=== PATIENT | female | born 1955 | race Caucasian/White ===

== ENCOUNTER 2018-02-16 23:50 | Inpatient (IN) | payer MEDICARE ==
[~2018-02-16] VITALS: Ht 152.4 cm; Wt 61.6 kg
[2018-02-17] VITALS (17 sets, daily range): BP systolic 125–184; BP diastolic 61–81; PULSE 70–100; RESP 10–18; TEMP 98.6–101.5; O2SAT 95–99
[2018-02-17] MEDS ORDERED: AMLO10 PO (00:22)
[2018-02-17] MEDS ORDERED: LANTUS2P SQ (00:22)
[2018-02-17] MEDS ORDERED: CARV6.25 PO (00:22)
[2018-02-17] MEDS ORDERED: AUGM875T3 PO (00:22)
[2018-02-17] MEDS ORDERED: ASPI-516 CHEW (00:22)
[2018-02-17] MEDS ORDERED: FAMO20TA2 PO (00:22)
[2018-02-17] MEDS ORDERED: GABA600T PO (00:22)
[2018-02-17] MEDS ORDERED: CLON0.1T PO (00:22)
--- NOTE | 2018-02-17 00:32 | PD ---
HPI Chief Complaint: Skin Problem Time Seen by Provider: 00:30 Travel History International Travel<30 days: No Contact w/Intl Traveler<30days: No Traveled to known affect area: No History of Present Illness HPI Patient is visiting family here, normally lives in [place]. She came up here to visit family and while she has been here she started to develop left heel pain more than usual. The patient's daughter made an appointment with a sugar plantation manager who apparently clean the callus of the heel of the left foot and place the patient on Augmentin on Saturday. Now the patient was started to develop redness to the heel, fever at home of 101, decreased activity, decreased appetite, No known drug allergy Past medical history significant for AV shunt, hypertension, dialysis, hysterectomy, diabetes, hip replacement, fistula on the right arm [facility] Past Medical History Cardiovascular Problems: Yes Diabetes: Yes Patient Takes Glucophage: No Dialysis: Yes GERD: Yes Hypertension: Yes Tetanus Vaccination: Unknown Influenza Vaccination: No ?: Not Past Surgical History Arteriovenous Shunt: Yes Hysterectomy: Yes Joint Replacement: Yes (hip) Other Surgery: Yes (fistula right arm) Social History Alcohol Use: No Tobacco Use: No Substance Use: No Allergies-Medications (Allergen,Severity, Reaction): Coded Allergies: No Known Allergies (Verified Allergy, Unknown, 02/17/18) Reported Meds & Prescriptions Reported Meds & Active Scripts Active Reported Lantus Inj (Insulin Glargine) 1,000 Unit/10 Ml Vial 50 Units SQ HS Gabapentin 600 Mg Tab 600 Mg PO BID Famotidine 20 Mg Tab 20 Mg PO BID Aspirin 81 Mg Chew 81 Mg CHEW DAILY Clonidine (Clonidine HCl) 0.1 Mg Tab 0.1 Mg PO BID Coreg (Carvedilol) 6.25 Mg Tab 6.25 Mg PO BID Norvasc (Amlodipine Besylate) 10 Mg Tab 10 Mg PO DAILY Augmentin (Amoxicillin-Clavulanate) 875-125 Mg Tab 1 Tab PO BID Review of Systems General / Constitutional: No: Fever Eyes: No: Visual changes HENT: No: Headaches Cardiovascular: No: Chest Pain or Discomfort Respiratory: No: Shortness of Breath Gastrointestinal: No: Abdominal Pain Genitourinary: No: Dysuria Musculoskeletal: Positive: Pain (Foot pain) Skin: No Rash Neurologic: No: Weakness Psychiatric: No: Depression Endocrine: No: Polydipsia Hematologic/Lymphatic: No: Easy Bruising Physical Exam Narrative GENERAL: SKIN: Warm and dry. HEAD: Atraumatic. Normocephalic. EYES: Pupils equal and round. No scleral icterus. No injection or drainage. ENT: No nasal bleeding or discharge. Mucous membranes pink and moist. NECK: Trachea midline. No JVD. CARDIOVASCULAR: Regular rate and rhythm. RESPIRATORY: No accessory muscle use. Clear to auscultation. Breath sounds equal bilaterally. GASTROINTESTINAL: Abdomen soft, non-tender, nondistended. MUSCULOSKELETAL: Extremities without clubbing, cyanosis, or edema. No obvious deformities. Right heel has 2 chronic heel wounds that are not infected and are in various stages of healing. However the left heel has a callus as well as surrounding erythematous changes to the heel. No drainage, a small streak noted along the medial aspect of her heel NEUROLOGICAL: Awake and alert. No obvious cranial nerve deficits. Motor grossly within normal limits. Five out of 5 muscle strength in the arms and legs. Normal speech. PSYCHIATRIC: Appropriate mood and affect; insight and judgment normal. Data Data Last Documented VS Vital Signs Date Time Temp Pulse Resp B/P (MAP) Pulse Ox O2 Delivery O2 Flow Rate FiO2 02/17/18 01:20 90 16 164/75 (104) 95 Nasal Cannula 02/17/18 00:03 101.5 Orders Orders Sepsis Workup Initiated (02/17/18 ) Complete Blood Count With Diff (02/17/18 00:41) Comprehensive Metabolic Panel (02/17/18 00:41) Prothrombin Time / Inr (Pt) (02/17/18 00:41) Act Partial Throm Time (Ptt) (02/17/18 00:41) Lactic Acid Sepsis Protocol (02/17/18 00:41) Lipase (02/17/18 00:41) Troponin I (02/17/18 00:41) Urinalysis - C+S If Indicated (02/17/18 00:41) Blood Culture (02/17/18 00:41) Chest, Single Ap (02/17/18 00:41) Blood Glucose (02/17/18 00:41) Ecg Monitoring (02/17/18 00:41) Iv Access Insert/Monitor (02/17/18 00:41) Oximetry (02/17/18 00:41) Aztreonam Inj (Azactam Inj) (02/17/18 00:41) Vancomycin Inj (Vancomycin Inj) (02/17/18 00:41) Foot, Heel Only ([id number]) (02/17/18 ) Labs Laboratory Tests Test 02/17/18 00:52 White Blood Count 18.8 TH/MM3 Red Blood Count 2.85 MIL/MM3 Hemoglobin 8.8 GM/DL Hematocrit 27.3 % Mean Corpuscular Volume 95.8 FL Mean Corpuscular Hemoglobin 30.9 PG Mean Corpuscular Hemoglobin Concent 32.2 % Red Cell Distribution Width 13.7 % Platelet Count 344 TH/MM3 Mean Platelet Volume 9.1 FL Neutrophils (%) (Auto) 88.3 % Lymphocytes (%) (Auto) 5.4 % Monocytes (%) (Auto) 5.2 % Eosinophils (%) (Auto) 0.9 % Basophils (%) (Auto) 0.2 % Neutrophils # (Auto) 16.6 TH/MM3 Lymphocytes # (Auto) 1.0 TH/MM3 Monocytes # (Auto) 1.0 TH/MM3 Eosinophils # (Auto) 0.2 TH/MM3 Basophils # (Auto) 0.0 TH/MM3 CBC Comment DIFF FINAL Differential Comment Prothrombin Time 10.3 SEC Prothromb Time International Ratio 1.0 RATIO Activated Partial Thromboplast Time 28.7 SEC Blood Urea Nitrogen 57 MG/DL Creatinine 5.00 MG/DL Random Glucose 732 MG/DL Total Protein 7.5 GM/DL Albumin 2.6 GM/DL Calcium Level 8.6 MG/DL Alkaline Phosphatase 107 U/L Aspartate Amino Transf (AST/SGOT) 17 U/L Alanine Aminotransferase (ALT/SGPT) 14 U/L Total Bilirubin 0.3 MG/DL Sodium Level 125 MEQ/L Potassium Level 4.5 MEQ/L Chloride Level 88 MEQ/L Carbon Dioxide Level 25.8 MEQ/L Anion Gap 11 MEQ/L Estimat Glomerular Filtration Rate 9 ML/MIN Lactic Acid Level 1.3 mmol/L Troponin I LESS THAN 0.02 NG/ML Lipase 285 U/L MDM Medical Decision Making Medical Screen Exam Complete: Yes Emergency Medical Condition: Yes Medical Record Reviewed: Yes Differential Diagnosis Cellulitis versus abscess versus osteomyelitis versus lymphangitis Narrative Course CBC shows 19,000 white count, anemia of 8.8/27.3, normal platelet count 344, 000. Left shift of 88% neutrophilia present Coagulation profile is within normal limits Patient has pseudohyponatremia of 125, hyperglycemia of 732, Normal liver and pancreatic enzymes Lactic acid 1.3 and negative First set of cardiac enzymes negative The patient's BUN and creatinine are 57/5 which are consistent with her end- stage renal disease on dialysis, the patient is also anuric and does not produce urine so we were unable to test her urine. Chest x-ray read by the radiologist seems to be read as expiratory view, most likely the cause of it however mild case of pulmonary edema is not excluded. He will x-ray read by the radiologist as extensive gangrenous subcutaneous infection with gas collections and a foreign bodies identified Sepsis Criteria SIRS Criteria (2 or more): Temp > 100.9 or < 96.8, WBC > 16252, < 4000 or > 10 % bands Sepsis Criteria (SIRS+source): Infect source susp/known Criteria Outcome: Meets sepsis criteria Diagnosis Primary Impression: Left heel gangrene Additional Impressions: Rule out osteo-, unknown retained foreign body Hyperglycemia Pseudohyponatremia Admitting Information Admitting Physician Requests: Admit Xu Castro MD February 17, 2018 00:32
[2018-02-17] MEDS ORDERED: AZTREONAM INJ 2,000 MG in SODIUM CHLORIDE 0.9% INJ 100 ML IV STA (00:41)
[2018-02-17] MEDS ORDERED: VANCOMYCIN INJ 1,000 MG in SODIUM CHLOR 0.9% 250 ML INJ 250 ML IV STA (00:41)
[2018-02-17 01:05] LABS: AUTOMATED NEUTROPHIL # 16.6 TH/MM3 (1.8-7.7); BASOPHIL % 0.2 % (0.0-2.0); EOSINOPHIL # 0.2 TH/MM3 (0-0.4); EOSINOPHIL % 0.9 % (0.0-4.0); HEMATOCRIT 27.3 % (35.0-46.0); HEMOGLOBIN 8.8 GM/DL (11.6-15.3); LYMPH % 5.4 % (9.0-44.0); MEAN CELL VOLUME 95.8 FL (80.0-100.0); MEAN CORPUSCULAR HEMOGLOBIN 30.9 PG (27.0-34.0); MEAN CORPUSCULAR HGB CONC 32.2 % (32.0-36.0); MEAN PLATELET VOLUME 9.1 FL (7.0-11.0); MONO % 5.2 % (0.0-8.0); NEUT % 88.3 % (16.0-70.0); PLATELET COUNT 344 TH/MM3 (150-450); RED BLOOD COUNT 2.85 MIL/MM3 (4.00-5.30); RED CELL DISTRIBUTION WIDTH 13.7 % (11.6-17.2); WHITE BLOOD COUNT 18.8 TH/MM3 (4.0-11.0)
[2018-02-17 01:12] LABS: CHLORIDE 88 MEQ/L (98-107); SODIUM (NA) 125 MEQ/L (136-145)
[2018-02-17 01:16] LABS: ALBUMIN 2.6 GM/DL (3.4-5.0); BICARBONATE 25.8 MEQ/L (21.0-32.0); BLOOD UREA NITROGEN 57 MG/DL (7-18); CALCIUM 8.6 MG/DL (8.5-10.1)
[2018-02-17 01:19] LABS: ALT (GPT) 14 U/L (10-53); AST (GOT) 17 U/L (15-37); GLOMERULAR FILTRATION RATE 9 ML/MIN (>89)
--- NOTE | 2018-02-17 01:19 | RADRPT ---
EXAM DATE: 02/17/2018 1:08 AM EDT AGE/SEX: 62 years / Female INDICATIONS: Fever, short of breath, evaluate for pneumonia CLINICAL DATA: This is the patient's initial encounter. Patient reports that signs and symptoms have been present for 1 day and indicates a pain score of Nonresponsive. MEDICAL/SURGICAL HISTORY: None. None. COMPARISON: No prior exams available for comparison. FINDINGS: There is crowding of the bronchovascular markings due to the partially expiratory nature of the radio graphs creating prominence of the perivascular interstitial markings, however mild case of pulmonary edema is not excluded. Focal consolidation is not seen. Chronic vascular atherosclerotic calcificatio ns are seen involving the aorta. Heart and mediastinum are unremarkable for technique. CONCLUSION: There is crowding of the bronchovascular markings due to the partially expiratory nature of the radio graphs creating prominence of the perivascular interstitial markings, however mild case of pulmonary edema is not excluded. Electronically signed by: Angela Hunt MD 02/17/2018 1:18 AM EDT
[2018-02-17 01:21] LABS: TOTAL BILIRUBIN ADULT 0.3 MG/DL (0.2-1.0); TOTAL PROTEIN 7.5 GM/DL (6.4-8.2)
--- NOTE | 2018-02-17 01:22 | RADRPT ---
EXAM DATE: 02/17/2018 1:15 AM EDT AGE/SEX: 62 years / Female INDICATIONS: Painful infection of the heel on left foot, possible foreign body, evaluate for osteom yelitis CLINICAL DATA: This is the patient's initial encounter. Patient reports that signs and symptoms have been present for 3 days and indicates a pain score of Nonresponsive. MEDICAL/SURGICAL HISTORY: None. None. COMPARISON: No prior exams available for comparison. FINDINGS: Extensive subcutaneous gas is present underneath the patient's heel with an approximate 4 mm radiopaq ue foreign body in the subcutaneous tissues. No definite destructive lesion of the calcaneus is ident ified, however there is minimal lucency of the calcaneus questionable for early osteomyelitis. CONCLUSION: 1. Extensive gangrenous subcutaneous infection with gas collections and a foreign body is identified . 2. No definite signs of osteomyelitis, however early osteomyelitis should be entertained and there i s minimal lucency of the calcaneus dorsally. Electronically signed by: Angela Hunt MD 02/17/2018 1:20 AM EDT
[2018-02-17 01:24] LABS: PROTHROMBIN TIME - PATIENT 10.3 SEC (9.8-11.6)
[2018-02-17 01:27] LABS: TROPONIN I LESS THAN 0.02 NG/ML (0.02-0.05)
[2018-02-17 01:29] LABS: GLUCOSE,RANDOM 732 MG/DL (74-106)
[2018-02-17 01:32] LABS: ALKALINE PHOSPHATASE 107 U/L (45-117)
[2018-02-17] MEDS ORDERED: SODIUM CHLOR 0.9% 1000 ML INJ 1,000 ML IV SCH (02:17)
[2018-02-17] MEDS ORDERED: ACETAMINOPHEN/HYDROcodone 325 MG/5 MG TAB PO PRN (02:30)
[2018-02-17] MEDS ORDERED: MAGNESIUM HYDROXIDE SUSP 30 ML CUP PO PRN (02:30)
[2018-02-17] MEDS ORDERED: INSULIN DETEMIR 100 UNITS/ML VIAL SQ ONE (02:30)
[2018-02-17] MEDS ORDERED: BISACODYL 10 MG SUPP RECTAL PRN (02:30)
[2018-02-17] MEDS ORDERED: ACETAMINOPHEN 325 MG TAB PO PRN ×2 (02:30→08:00)
[2018-02-17] MEDS ORDERED: Vancomycin Consult Pharmacy 1 EA OTHER SCH ×2 (02:30→11:30)
[2018-02-17] MEDS ORDERED: INSULIN HUMAN REGULAR 1,000 UNITS/10 ML VIAL IV PUSH ONE (02:30)
[2018-02-17] MEDS ORDERED: SODIUM CHLORIDE 0.9% FLUSH 10 ML FLUSH IV FLUSH PRN ×2 (02:30→08:00)
[2018-02-17] MEDS ORDERED: LACTULOSE SYRUP 20 GM/30 ML CUP PO PRN (02:30)
[2018-02-17] MEDS ORDERED: GLUCAGON 1 MG/ML VIAL OTHER PRN (02:30)
[2018-02-17] MEDS ORDERED: SENNOSIDES 8.6 MG TAB PO PRN (02:30)
[2018-02-17] MEDS ORDERED: MORPHINE SULFATE 4 MG/ML INJ IV PUSH PRN (02:30)
[2018-02-17] MEDS ORDERED: DEXTROSE 50% IN WATER 50 ML VIAL(D50) IV PUSH PRN (02:30)
[2018-02-17] MEDS ORDERED: SODIUM CHLOR 0.9% 1000 ML INJ 1,000 ML IV PRN (07:58)
[2018-02-17] MEDS ORDERED: SODIUM CHLOR 0.9% 1000 ML INJ 1,000 ML OTHER PRN ×2 (07:58)
[2018-02-17] MEDS ORDERED: MANNITOL 12.5 GM/50 ML VIAL IV PRN (08:00)
[2018-02-17] MEDS ORDERED: INSULIN ASPART SUPPLEMENTAL SCALE SQ SCH ×2 (08:00→12:00)
[2018-02-17] MEDS ORDERED: ALBUMIN 25% INJ 100 ML IV PRN (08:00)
[2018-02-17] MEDS ORDERED: EPOETIN ALFA 10,000 UNITS/ML VIAL IV PUSH PRN (08:00)
[2018-02-17] MEDS ORDERED: HEPARIN SODIUM - IV 10,000 UNITS/10 ML VIAL IV FLUSH PRN (08:00)
[2018-02-17] MEDS ORDERED: diphenhydrAMINE HCL 25 MG CAP PO PRN (08:00)
[2018-02-17] MEDS ORDERED: NITROGLYCERIN 0.4 MG SL 25 TABS/BTL SL PRN (08:00)
[2018-02-17] MEDS ORDERED: cloNIDine HCL 0.1 MG TAB PO PRN (08:00)
[2018-02-17] MEDS ORDERED: ONDANSETRON HCL 4 MG/2 ML VIAL IV PUSH PRN (08:00)
[2018-02-17] MEDS ORDERED: GELATIN 12 MM/7 MM FOAM TOP PRN (08:00)
[2018-02-17 08:54] LABS: CALCIUM 8.2 MG/DL (8.5-10.1)
[2018-02-17 08:55] LABS: BICARBONATE 25.5 MEQ/L (21.0-32.0)
[2018-02-17 08:58] LABS: CREATININE 5.3 MG/DL (0.50-1.00)
[2018-02-17] MEDS ORDERED: CARVEDILOL 6.25 MG TAB PO SCH (09:00)
[2018-02-17] MEDS ORDERED: cloNIDine HCL 0.1 MG TAB PO SCH (09:00)
[2018-02-17] MEDS ORDERED: SODIUM CHLORIDE 0.9% FLUSH 10 ML FLUSH IV FLUSH SCH (09:00)
[2018-02-17] MEDS ORDERED: HEPARIN SODIUM - SQ 10,000 UNITS/ML VIAL SQ SCH (09:00)
[2018-02-17] MEDS ORDERED: DOCUSATE SODIUM 50 MG/SENNA 8.6 MG TAB PO SCH (09:00)
--- NOTE | 2018-02-17 10:53 | HHI.HP ---
HPI Service [facility] Primary Care Physician No Primary Care Physician Admission Diagnosis LEFT HEEL GANGRENE, MOD/SEVERE HYPERGLYCEMIA W/O DKA, HEEL FB Diagnoses: (1) Sepsis Diagnosis: Principal (2) Diabetic infection of left foot Diagnosis: Principal (3) Diabetes type 1, uncontrolled Chief Complaint: Left foot pain Travel History International Travel<30 Days: No Contact w/Intl Traveler <30 Da: No Traveled to Known Affected Are: No Sepsis Criteria SIRS Criteria (2 or more): Temp > 100.9 or < 96.8, WBC > 55333, < 4000 or > 10 % bands Sepsis Criteria (SIRS+source): Infect source susp/known History of Present Illness Written by Ji Phipps, acting as scribe for Dr. Berrios on 02/17/18 at 10: 52. 62-year-old [place] female rather unfortunate conditions of moving here from [place] with known history of diabetes, diabetic foot care. Patient is just visiting family here from [place] and she started developing worsening left foot pain so they came to the emergency department for evaluation. Patient does have a long-standing history of diabetic foot problems. She recently did get evaluated in the emergency department and by podiatry down in [place] on Saturday in which she was given Augmentin 875 mg twice daily. Patient had been taking medications as directed but she started developing worsening pain and symptoms so she came to the emergency department here. Patient had x-ray done which does show extensive gangrenous subcutaneous infection with gas collections and a foreign body with possible early osteomyelitis. Because of that reason is recommended by ER physician that the patient be admitted for further evaluation and management. Patient did have further testing done which did show indications of sepsis with fever, leukocytosis, source of infection. Lactic acid level was normal. Unfortunately patient is a uncontrolled diabetic due to insurance reasons they do not have money for test strips in order to monitor her glucose. Patient did present with 732 blood glucose. However patient was not in any signs of ketoacidosis. Patient is also complicated with end-stage renal disease on dialysis, she does have fistula in the right arm. Patient does undergo dialysis. Upon speaking to patient and family, they are very anxious to get the patient back to a hospital where they live in order to manage her condition at this time. Review of Systems Musculoskeletal: COMPLAINS OF: Joint pain Except as stated in HPI: all other systems reviewed are Neg Past Family Social History Past Medical History Diabetes Hypertension End-stage renal disease on dialysis Gastroesophageal reflux Past Surgical History Dialysis catheter in the right arm Hip replacement Hysterectomy Reported Medications Reported Meds & Active Scripts Active Reported Lantus Inj (Insulin Glargine) 1,000 Unit/10 Ml Vial 50 Units SQ HS Gabapentin 600 Mg Tab 600 Mg PO BID Famotidine 20 Mg Tab 20 Mg PO BID Aspirin 81 Mg Chew 81 Mg CHEW DAILY Clonidine (Clonidine HCl) 0.1 Mg Tab 0.1 Mg PO BID Coreg (Carvedilol) 6.25 Mg Tab 6.25 Mg PO BID Norvasc (Amlodipine Besylate) 10 Mg Tab 10 Mg PO DAILY Augmentin (Amoxicillin-Clavulanate) 875-125 Mg Tab 1 Tab PO BID Allergies: Coded Allergies: No Known Allergies (Verified Allergy, Unknown, 02/17/18) Family History Family history reviewed and significant for heart disease Social History Patient denies any tobacco, alcohol or illicit drug Physical Exam Vital Signs Vital Signs Date Time Temp Pulse Resp B/P (MAP) Pulse Ox O2 Delivery O2 Flow Rate FiO2 02/17/18 10:01 78 12 152/70 (97) 99 02/17/18 10:00 83 02/17/18 09:01 82 14 171/74 (106) 98 02/17/18 08:40 82 13 156/71 (99) 97 02/17/18 08:07 96 Nasal Cannula 2.00 02/17/18 07:45 99.6 149/66 (93) 02/17/18 07:35 02/17/18 07:04 98.6 81 18 155/72 (99) 96 Nasal Cannula 2.00 02/17/18 05:09 79 16 143/63 (89) 97 Nasal Cannula 2.00 02/17/18 02:57 99.7 87 16 160/68 (98) 96 Nasal Cannula 2.00 02/17/18 01:20 90 16 164/75 (104) 95 Nasal Cannula 02/17/18 01:18 90 16 164/75 (104) 96 Nasal Cannula 02/17/18 00:59 Room Air 02/17/18 00:03 101.5 100 18 184/81 (115 95 Physical Exam GENERAL: Well-developed, well-nourished, in no acute distress. alert and orientated HEENT: Head is normocephalic without any lesions or masses noted. Facial features are symmetric. Eyes: Pupils equal round reactive to light. Extraocular muscles are intact. Conjunctivae were clear. Oropharyngeal: Pharynx without any erythema edema. Tongue is midline without deviation. Buccal mucosa is moist without any masses or lesions NECK: Supple without any masses. Trachea midline no deviation. No JVD, no bruits are appreciated CARDIAC: Regular rhythm, regular rate. S1/S2 are heard. No murmurs gallops or rubs. LUNGS: Clear to auscultation bilaterally. No wheeze, rhonchi or rales. No use of accessory muscles on inspiration or expiration. ABDOMEN: Soft, nontender. Nondistended. Bowel sounds heard in all 4 quadrants. No organomegaly or masses. Negative rebound, negative guarding EXTREMITIES: No edema, pulses are equal bilaterally. No cyanosis or clubbing NEUROLOGY: Mood and affect appear appropriate. Cranial nerves II through XII grossly intact. Muscle strength 5/5 in upper and lower extremities bilaterally. Deep tendon reflexes are 2+ in upper and lower extremities bilaterally. LEFT LOWER EXTREMITY: Patient does have significant erythema noted over the left heel with obvious skin discoloration with black discoloration under an incision, patient often has pale color skin noted around a previous incision karyna. There is a line marked around the erythema without any significant improvement. Laboratory Laboratory Tests Test 02/17/18 00:52 02/17/18 08:17 White Blood Count 18.8 Red Blood Count 2.85 Hemoglobin 8.8 Hematocrit 27.3 Mean Corpuscular Volume 95.8 Mean Corpuscular Hemoglobin 30.9 Mean Corpuscular Hemoglobin Concent 32.2 Red Cell Distribution Width 13.7 Platelet Count 344 Mean Platelet Volume 9.1 Neutrophils (%) (Auto) 88.3 Lymphocytes (%) (Auto) 5.4 Monocytes (%) (Auto) 5.2 Eosinophils (%) (Auto) 0.9 Basophils (%) (Auto) 0.2 Neutrophils # (Auto) 16.6 Lymphocytes # (Auto) 1.0 Monocytes # (Auto) 1.0 Eosinophils # (Auto) 0.2 Basophils # (Auto) 0.0 CBC Comment DIFF FINAL Differential Comment Prothrombin Time 10.3 Prothromb Time International Ratio 1.0 Activated Partial Thromboplast Time 28.7 Blood Urea Nitrogen 57 63 Creatinine 5.00 5.30 Random Glucose 732 532 Total Protein 7.5 Albumin 2.6 Calcium Level 8.6 8.2 Alkaline Phosphatase 107 Aspartate Amino Transf (AST/SGOT) 17 Alanine Aminotransferase (ALT/SGPT) 14 Total Bilirubin 0.3 Sodium Level 125 129 Potassium Level 4.5 4.4 Chloride Level 88 92 Carbon Dioxide Level 25.8 25.5 Anion Gap 11 12 Estimat Glomerular Filtration Rate 9 8 Lactic Acid Level 1.3 Troponin I LESS THAN 0.02 Lipase 285 Date/Time Source Procedure Growth Status 02/17/18 00:55 Blood Peripheral Aerobic Blood Culture Pending Received 02/17/18 00:55 Blood Peripheral Anaerobic Blood Culture Pending Received Result Diagram: 02/17/18 0052 02/17/18 0817 Imaging Last Impressions Chest X-Ray 02/17/18 0041 Signed Impressions: CONCLUSION: There is crowding of the bronchovascular markings due to the partially expirato ry nature of the radiographs creating prominence of the perivascular interstiti al markings, however mild case of pulmonary edema is not excluded. Foot X-Ray 02/17/18 0000 Signed Impressions: CONCLUSION: 1. Extensive gangrenous subcutaneous infection with gas collections and a fore ign body is identified. 2. No definite signs of osteomyelitis, however early osteomyelitis should be e ntertained and there is minimal lucency of the calcaneus dorsally. Septic Shock Reassessment Septic shock perfusion: reassessment completed Caprini VTE Risk Assessment Caprini VTE Risk Assessment: Mod/High Risk (score >= 2) Caprini Risk Assessment Model Point Value = 1 Point Value = 2 Point Value = 3 Point Value = 5 Age 41-60 Minor surgery BMI > 25 kg/m2 Swollen legs Varicose veins or History of unexplained or recurrent spontaneous Oral contraceptives or hormone replacement Sepsis (< 1 month) Serious lung disease, including pneumonia (< 1 month) Abnormal pulmonary function Acute myocardial infarction Congestive heart failure (< 1 month) History of inflammatory bowel disease Medical patient at bed rest Age 61-74 Arthroscopic surgery Major open surgery (> 45 min) Laparoscopic surgery (> 45 min) Malignancy Confined to bed (> 72 hours) Immobilizing plaster cast Central venous access Age >= 75 History of VTE Family history of VTE Factor V Leiden Prothrombin [id number] Lupus anticoagulant Anticardiolipin antibodies Elevated serum homocysteine Heparin-induced thrombocytopenia Other congenital or acquired thrombophilia Stroke (< 1 month) Elective arthroplasty Hip, pelvis, or leg fracture Acute spinal cord injury (< 1 month) Prophylaxis Regimen Total Risk Factor Score Risk Level Prophylaxis Regimen 0-1 Low Early ambulation 2 Moderate Order ONE of the following: *Sequential Compression Device (SCD) *Heparin 5000 units SQ BID 3-4 Higher Order ONE of the following medications: *Heparin 5000 units SQ TID *Enoxaparin/Lovenox 40 mg SQ daily (WT < 150 kg, CrCl > 30 mL/min) *Enoxaparin/Lovenox 30 mg SQ daily (WT < 150 kg, CrCl > 10-29 mL/min) *Enoxaparin/Lovenox 30 mg SQ BID (WT < 150 kg, CrCl > 30 mL/min) AND/OR *Sequential Compression Device (SCD) 5 or more Highest Order ONE of the following medications: *Heparin 5000 units SQ TID (Preferred with Epidurals) *Enoxaparin/Lovenox 40 mg SQ daily (WT < 150 kg, CrCl > 30 mL/min) *Enoxaparin/Lovenox 30 mg SQ daily (WT < 150 kg, CrCl > 10-29 mL/min) *Enoxaparin/Lovenox 30 mg SQ BID (WT < 150 kg, CrCl > 30 mL/min) AND *Sequential Compression Device (SCD) Assessment and Plan Problem List: (1) Sepsis ICD Code: A41.9 - Sepsis, unspecified organism (2) Diabetic infection of left foot ICD Code: E11.628 - Type 2 diabetes mellitus with other skin complications; L08.9 - Local infection of the skin and subcutaneous tissue, unspecified (3) ESRD on hemodialysis ICD Code: N18.6 - End stage renal disease; Z99.2 - Dependence on renal dialysis Assessment and Plan 62-year-old female with Sepsis -Patient met criteria on admission with febrile illness, leukocytosis, diabetic foot infection with extensive gangrene -Patient initially started on vancomycin, Azactam, cefepime for antibiotics -Blood cultures are pending -Obtain wound culture Diabetic foot infection with gas gangrene and possible osteomyelitis -Patient has had evaluation done by abstract manager in [place] where they live. However she regressed got worse she came the hospital for evaluation -X-ray does indicate extensive gangrenous subcutaneous infection with gas collections and a foreign body with possible early osteomyelitis signs -We will need to obtain MRI for further evaluation for osteomyelitis -Continue vancomycin, discontinue cefepime and start Zosyn 4.5 g every 6 hours -Podiatry consulted for further recommendations Diabetes, uncontrolled -Continue Levemir -Increase to high-dose sliding scale insulin End-stage renal disease on dialysis -Nephrology consulted for dialysis DVT prevention -Subcutaneous heparin Discharge disposition Patient presented with sepsis criteria, significant diabetic foot infection, uncontrolled diabetes. Patient and family would like to be discharged in order to drive back home and go to the hospital where they live and follow-up with the abstract manager that they have already seen. Patient was counseled extensively on her clinical condition at this time and without proper treatment the infection could spread systemically and possible cause worsening condition, multiorgan failure, and even . This note was transcribed by alan Phipps. I, Dr. Ayden Berrios personally performed the history, physical exam, and medical decision making; and confirmed the accuracy of the information in the transcribed note. Authenticated by Dr. Ayden Berrios on 02/17/18 at 10:52. Code Status Full code Discussed Condition With Patient, daughter Physician Certification 2 Midnight Certification Type: Admission for Inpatient Services Order for Inpatient Services The services are ordered in accordance with Medicare regulations or non- Medicare payer requirements, as applicable. In the case of services not specified as inpatient-only, they are appropriately provided as inpatient services in accordance with the 2-midnight benchmark. Estimated LOS (days): 3 days is the estimated time the patient will need to remain in the hospital, assuming treatment plan goals are met and no additional complications. Post-Hospital Plan: Not yet determined Ji Phipps February 17, 2018 10:53 Ayden Berrios MD February 17, 2018 10:53
[2018-02-17 12:40] LABS: AUTOMATED NEUTROPHIL # 12.8 TH/MM3 (1.8-7.7); BASOPHIL % 0.2 % (0.0-2.0); EOSINOPHIL # 0.3 TH/MM3 (0-0.4); HEMATOCRIT 26.7 % (35.0-46.0); HEMOGLOBIN 8.6 GM/DL (11.6-15.3); LYMPH % 9.2 % (9.0-44.0); LYMPHOCYTE # 1.4 TH/MM3 (1.0-4.8); MEAN CELL VOLUME 93.3 FL (80.0-100.0); MEAN CORPUSCULAR HEMOGLOBIN 30.1 PG (27.0-34.0); MEAN CORPUSCULAR HGB CONC 32.3 % (32.0-36.0); MEAN PLATELET VOLUME 9.3 FL (7.0-11.0); MONO % 6.7 % (0.0-8.0); NEUT % 81.9 % (16.0-70.0); PLATELET COUNT 321 TH/MM3 (150-450); RED BLOOD COUNT 2.86 MIL/MM3 (4.00-5.30); RED CELL DISTRIBUTION WIDTH 13.1 % (11.6-17.2); WHITE BLOOD COUNT 15.5 TH/MM3 (4.0-11.0)
[2018-02-17] MEDS ORDERED: PIPERACIL-TAZO 4.5 GM PREMIX 100 ML IV SCH (13:00)
--- NOTE | 2018-02-17 14:21 | PD.CONS ---
History of Present Illness Service Podiatry Consult Requested By Reason for Consult Left foot infection/foreign body Primary Care Physician No Primary Care Physician Diagnoses: History of Present Illness Patient here visiting with unknown length of time of issue to left heel. Worsening signs of infection noted and patient admitted. Noted to have possible foreign body with gas on Xray to left heel. Routine consultation placed to podiatry. Past Family Social History Allergies: Coded Allergies: No Known Allergies (Verified Allergy, Unknown, 02/17/18) Past Medical History Diabetes Hypertension End-stage renal disease on dialysis Gastroesophageal reflux Past Surgical History Dialysis catheter in the right arm Hip replacement Hysterectomy Active Ordered Medications Current Medications Medications (Trade) Dose Ordered Sig/Srinivas Route Start Time Stop Time Status Last Admin (D50w (Vial) Inj) 50 ml UNSCH PRN IV PUSH 02/17/18 02:30 (Glucagon Inj) 1 mg UNSCH PRN OTHER 02/17/18 02:30 Sodium Chloride 1,000 ml @ 100 mls/hr Q10H IV 02/17/18 02:17 (NS Flush) 2 ml UNSCH PRN IV FLUSH 02/17/18 02:30 (NS Flush) 2 ml BID IV FLUSH 02/17/18 09:00 02/17/18 09:00 (Heparin Inj) 5,000 units Q12H SQ 02/17/18 09:00 02/17/18 08:29 (Tylenol) 650 mg Q6H PRN PO 02/17/18 02:30 ([place] 5-325 Mg) 1 tab Q4H PRN PO 02/17/18 02:30 (Morphine Inj) 2 mg Q3H PRN IV PUSH 02/17/18 02:30 (Kanchan-Colace) 1 tab BID PO 02/17/18 09:00 02/17/18 08:31 (Milk Of Magnesia Liq) 30 ml Q12H PRN PO 02/17/18 02:30 (Senokot) 17.2 mg Q12H PRN PO 02/17/18 02:30 (Dulcolax Supp) 10 mg DAILY PRN RECTAL 02/17/18 02:30 (Lactulose Liq) 30 ml DAILY PRN PO 02/17/18 02:30 (Norvasc) 10 mg DAILY PO 02/17/18 09:00 02/17/18 08:31 (Coreg) 6.25 mg BID PO 02/17/18 09:00 02/17/18 08:31 (Catapres) 0.1 mg BID PO 02/17/18 09:00 02/17/18 08:33 (Levemir Inj) 50 units HS SQ 02/17/18 21:00 Sodium Chloride 1,000 ml @ 0 mls/hr Q0M PRN OTHER 02/17/18 07:58 (Heparin Inj) 8,000 units UNSCH PRN IV FLUSH 02/17/18 08:00 Sodium Chloride 1,000 ml @ 200 mls/hr Q5H PRN IV 02/17/18 07:58 Sodium Chloride 1,000 ml @ 0 mls/hr Q0M PRN OTHER 02/17/18 07:58 (Mannitol Inj) 12.5 gm UNSCH PRN IV 02/17/18 08:00 Albumin Human 100 ml @ 60 mls/hr UNSCH PRN IV 02/17/18 08:00 (NS Flush) 5 ml UNSCH PRN IV FLUSH 02/17/18 08:00 (Zofran Inj) 4 mg UNSCH PRN IV PUSH 02/17/18 08:00 (Tylenol) 650 mg UNSCH PRN PO 02/17/18 08:00 (Benadryl) 25 mg UNSCH PRN PO 02/17/18 08:00 (Nitrostat Sl) 0.4 mg UNSCH PRN SL 02/17/18 08:00 (Catapres) 0.1 mg UNSCH PRN PO 02/17/18 08:00 (Epogen Inj) 10,000 units UNSCH PRN IV PUSH 02/17/18 08:00 (Gelfoam 12 Mm/7 Mm Top) 1 foam UNSCH PRN TOP 02/17/18 08:00 (NovoLOG SUPPLEMENTAL SCALE) 1 ACHS SLIDING SCALE SQ 02/17/18 12:00 02/17/18 12:04 Pharmacy Profile Note 0 ml @ 0 mls/hr UNSCH OTHER 02/17/18 11:30 Piperacillin Sod/ Tazobactam Sod 100 ml @ 200 mls/hr Q6H IV 02/17/18 13:00 02/17/18 16:00 02/17/18 12:48 Piperacillin Sod/ Tazobactam Sod 50 ml @ 100 mls/hr Q6H IV 02/17/18 20:00 Family History Family history reviewed and significant for heart disease Social History Patient denies any tobacco, alcohol or illicit drug Physical Exam Vital Signs Vital Signs Date Time Temp Pulse Resp B/P (MAP) Pulse Ox O2 Delivery O2 Flow Rate FiO2 02/17/18 12:00 70 02/17/18 10:01 78 12 152/70 (97) 99 02/17/18 10:00 83 02/17/18 09:01 82 14 171/74 (106) 98 02/17/18 08:40 82 13 156/71 (99) 97 02/17/18 08:07 96 Nasal Cannula 2.00 02/17/18 08:00 Nasal Cannula 3.00 02/17/18 07:45 99.6 149/66 (93) 02/17/18 07:35 02/17/18 07:04 98.6 81 18 155/72 (99) 96 Nasal Cannula 2.00 02/17/18 05:09 79 16 143/63 (89) 97 Nasal Cannula 2.00 02/17/18 02:57 99.7 87 16 160/68 (98) 96 Nasal Cannula 2.00 02/17/18 01:20 90 16 164/75 (104) 95 Nasal Cannula 02/17/18 01:18 90 16 164/75 (104) 96 Nasal Cannula 02/17/18 00:59 Room Air 02/17/18 00:03 101.5 100 18 184/81 (115) 95 Laboratory Laboratory Tests Test 02/17/18 00:52 02/17/18 08:17 02/17/18 11:56 White Blood Count 18.8 15.5 Red Blood Count 2.85 2.86 Hemoglobin 8.8 8.6 Hematocrit 27.3 26.7 Mean Corpuscular Volume 95.8 93.3 Mean Corpuscular Hemoglobin 30.9 30.1 Mean Corpuscular Hemoglobin Concent 32.2 32.3 Red Cell Distribution Width 13.7 13.1 Platelet Count 344 321 Mean Platelet Volume 9.1 9.3 Neutrophils (%) (Auto) 88.3 81.9 Lymphocytes (%) (Auto) 5.4 9.2 Monocytes (%) (Auto) 5.2 6.7 Eosinophils (%) (Auto) 0.9 2.0 Basophils (%) (Auto) 0.2 0.2 Neutrophils # (Auto) 16.6 12.8 Lymphocytes # (Auto) 1.0 1.4 Monocytes # (Auto) 1.0 1.0 Eosinophils # (Auto) 0.2 0.3 Basophils # (Auto) 0.0 0.0 CBC Comment DIFF FINAL AUTO DIFF Differential Comment AUTO DIFF CONFIRMED Prothrombin Time 10.3 Prothromb Time International Ratio 1.0 Activated Partial Thromboplast Time 28.7 Blood Urea Nitrogen 57 63 Creatinine 5.00 5.30 Random Glucose 732 532 Total Protein 7.5 Albumin 2.6 Calcium Level 8.6 8.2 Alkaline Phosphatase 107 Aspartate Amino Transf (AST/SGOT) 17 Alanine Aminotransferase (ALT/SGPT) 14 Total Bilirubin 0.3 Sodium Level 125 129 Potassium Level 4.5 4.4 Chloride Level 88 92 Carbon Dioxide Level 25.8 25.5 Anion Gap 11 12 Estimat Glomerular Filtration Rate 9 8 Lactic Acid Level 1.3 Troponin I LESS THAN 0.02 Lipase 285 C-Reactive Protein 17.40 Platelet Estimate NORMAL Platelet Morphology Comment NORMAL Date/Time Source Procedure Growth Status 02/17/18 00:55 Blood Peripheral Aerobic Blood Culture Pending Received 02/17/18 00:55 Blood Peripheral Anaerobic Blood Culture Pending Received Result Diagram: 02/17/18 1156 02/17/18 0817 Imaging Last 72 hours Impressions Chest X-Ray 02/17/18 0041 Signed Impressions: CONCLUSION: There is crowding of the bronchovascular markings due to the partially expirato ry nature of the radiographs creating prominence of the perivascular interstiti al markings, however mild case of pulmonary edema is not excluded. Foot X-Ray 02/17/18 0000 Signed Impressions: CONCLUSION: 1. Extensive gangrenous subcutaneous infection with gas collections and a fore ign body is identified. 2. No definite signs of osteomyelitis, however early osteomyelitis should be e ntertained and there is minimal lucency of the calcaneus dorsally. Assessment and Plan Assessment and Plan Infection left foot, foreign body left heel Patient left AMA before procedure/consultation could take place Obed Yoo DPM February 17, 2018 14:20
--- NOTE | 2018-02-17 17:54 | PD.AMA ---
Against Medical Advice Note Discharge Disposition: Against Medical Advice AMA Statement Patient Alejandra Rondon has decided to leave the hospital against medical advice. This patient has the capacity to refuse care and understands the risks of leaving, including permanent disability and/or , and has had an opportunity to ask questions about her condition. The patient has been informed that she may return for care at any time, and follow up has been arranged/ advised. Ayden Berrios MD February 17, 2018 17:54
[2018-02-17] MEDS ORDERED: PIPERACIL-TAZO 2.25 GM PREMIX 50 ML IV SCH (20:00)
[2018-02-17] MEDS ORDERED: INSULIN DETEMIR 100 UNITS/ML VIAL SQ SCH (21:00)
[2018-02-17] MEDS ORDERED: CEFEPIME INJ 1,000 MG in SODIUM CHLORIDE 0.9% INJ 100 ML IV SCH (23:00)
== END 2018-02-17 14:30 | disposition left against medical advice (07) | DRG 871 ==
LOC: PHED 23:50 → PHEDA 02-17 02:23 → PHICU 02-17 07:29
PROVIDERS: ADMIT Hospitalist; ATTEND Hospitalist
DX: A41.9 Sepsis, unspecified organism (principal); N18.6 End stage renal disease; E10.52 Type 1 diabetes mellitus with diabetic peripheral angiopathy with gangrene; I12.0 Hypertensive chronic kidney disease with stage 5 chronic kidney disease or end stage renal disease; E10.22 Type 1 diabetes mellitus with diabetic chronic kidney disease; K21.9 Gastro-esophageal reflux disease without esophagitis; Z96.649 Presence of unspecified artificial hip joint; Z90.710 Acquired absence of both cervix and uterus; D64.9 Anemia, unspecified; E10.628 Type 1 diabetes mellitus with other skin complications; E10.65 Type 1 diabetes mellitus with hyperglycemia; Z99.2 Dependence on renal dialysis; L08.9 Local infection of the skin and subcutaneous tissue, unspecified; M79.672 Pain in left foot; Z79.4 Long term (current) use of insulin; Z79.82 Long term (current) use of aspirin
CPT/HCPCS: 71045; 73650; 80048; 80053; 80074; 82948; 83605; 83690; 84484; 85025; 85610; 85652; 85730; 86140; 87040; 96365; 96375; J1644; J1815; J2543; J3370; J7050